=== PATIENT | female | born 1955 | race African-American/Black ===

== ENCOUNTER 2018-07-30 00:22 | Inpatient (IN) | payer MEDICAID ==
[2018-07-30] VITALS (50 sets, daily range): BP systolic 67–154; BP diastolic 20–114
[~2018-07-30] VITALS: Ht 160 cm; Wt 77.1 kg
[~2018-07-30 00:22] MED LIST: vicodin
[2018-07-30] MEDS ORDERED: FAMOTIDINE 20MG/2ML VIAL IV STA (00:42)
[2018-07-30] MEDS ORDERED: SODIUM CHLORIDE 0.9% 1,000 ML IV ONE ×2 (00:42)
[2018-07-30] MEDS ORDERED: ONDANSETRON HCL 4MG/2ML INJ IV STA (00:42)
[2018-07-30 01:17] LABS: BASOPHILS % 0.7 % (0.0-2.0); EOSINOPHILS % 2.1 % (0.0-5.0); HEMATOCRIT. 25.6 % (36.0-48.0); HEMOGLOBIN. 8.2 g/dL (12.0-16.0); MEAN CORPUSCULAR HEMOGLOBIN 27.9 pg (28.0-32.0); MEAN CORPUSCULAR VOLUME 86.6 fL (81.0-99.0); MEAN PLATELET VOLUME 8.1 fl (7.4-10.4); MONOCYTES % 3.4 % (2.0-8.0); NEUTROPHILS % 68.8 % (40.0-76.0); PLATELET 208 x1000/uL (130-400); RED BLOOD CELL COUNT 2.96 mill/uL (4.2-5.4)
[2018-07-30 01:23] LABS: INR 1.1; PARTIAL THROMBOPLASTIN TIME 25.3 sec (23.4-31.0); PROTHROMBIN TIME 10.8 sec (9.6-11.0)
[2018-07-30 01:24] LABS: CHLORIDE 110 mEq/L (98-107)
[2018-07-30] MEDS ORDERED: ONDANSETRON HCL 4MG/2ML INJ IV ONE (02:00)
[2018-07-30] MEDS ORDERED: MORPHINE SULFATE 4 MG/ML CPJ (NOT FOR IM USE) IV ONE (02:00)
[2018-07-30 03:38] LABS: BASOPHILS % 0.5 % (0.0-2.0); EOSINOPHILS % 1.1 % (0.0-5.0); HEMATOCRIT. 25.6 % (36.0-48.0); HEMOGLOBIN. 8.5 g/dL (12.0-16.0); LYMPHOCYTES % 18.1 % (20.0-50.0); MEAN CORPUSCULAR HEMOGLOBIN 28.3 pg (28.0-32.0); MEAN CORPUSCULAR VOLUME 85.7 fL (81.0-99.0); MEAN PLATELET VOLUME 7.9 fl (7.4-10.4); MONOCYTES % 3.7 % (2.0-8.0); NEUTROPHILS % 76.6 % (40.0-76.0); PLATELET 198 x1000/uL (130-400); RED BLOOD CELL COUNT 2.99 mill/uL (4.2-5.4)
[2018-07-30] MEDS ORDERED: ONDANSETRON HCL 4MG/2ML INJ IV PRN (05:00)
[2018-07-30] MEDS: MORPHINE SULFATE 2 MG/ML CPJ (NOT FOR IM USE) IV PRN ×3 (05:14→23:03)
[2018-07-30] MEDS: DEXT 5%/0.45% NACL KCL 10MEQ/L 1,000 ML IV SCH ×3 (06:26→19:54)
[2018-07-30] MEDS ORDERED: FAMOTIDINE 20MG/2ML VIAL IV SCH (09:00)
[2018-07-30 09:31] LABS: HEMATOCRIT 23.7 % (36.0-48.0); HEMOGLOBIN 7.6 g/dL (12.0-16.0)
[2018-07-30] MEDS: FAMOTIDINE 20MG/2ML VIAL IV SCH (09:34)
[2018-07-30 16:51] LABS: PHOSPHORUS 4.3 mg/dL (2.5-4.9)
[2018-07-30 19:10] LABS: HEMATOCRIT 29.9 % (36.0-48.0); HEMOGLOBIN 9.8 g/dL (12.0-16.0)
[2018-07-30] MEDS ORDERED: MAGNESIUM 2 G PREMIX 50 ML IV SCH (23:00)
[2018-07-31] VITALS (66 sets, daily range): BP systolic 76–148; BP diastolic 37–125
[2018-07-31] MEDS: DEXT 5%/0.45% NACL KCL 10MEQ/L 1,000 ML IV SCH (05:57)
[2018-07-31] MEDS: FAMOTIDINE 20MG/2ML VIAL IV SCH (08:18)
[2018-07-31 09:11] LABS: BASOPHILS % 0.7 % (0.0-2.0); EOSINOPHILS % 1.9 % (0.0-5.0); HEMOGLOBIN. 8.2 g/dL (12.0-16.0); LYMPHOCYTES % 16.6 % (20.0-50.0); MEAN CORPUSCULAR HEMOGLOBIN 28.4 pg (28.0-32.0); MEAN CORPUSCULAR VOLUME 86.3 fL (81.0-99.0); MEAN PLATELET VOLUME 7.8 fl (7.4-10.4); MONOCYTES % 4.1 % (2.0-8.0); NEUTROPHILS % 76.7 % (40.0-76.0); PLATELET 160 x1000/uL (130-400); RED CELL DISTRIBUTION WIDTH 14.7 % (11.6-14.6)
[2018-07-31 09:27] LABS: CHLORIDE 114 mEq/L (98-107)
[2018-07-31 09:38] LABS: T4 FREE 1.29 ng/dL (0.76-1.46)
[2018-07-31] MEDS ORDERED: DEXTROSE 50% WATER 50ML SYRINGE IV PRN (11:00)
[2018-07-31] MEDS: BLOOD SUGAR DIAGNOSTIC STRIP TEST SCH ×3 (11:33→20:11)
[2018-07-31] MEDS: INSULIN LISPRO 100 UNITS/ML SUBCUT SCH ×3 (11:47→20:13)
[2018-07-31] MEDS ORDERED: DIPHENHYDRAMINE 25MG CAPSULE PO PRN (12:30)
[2018-07-31] MEDS: ACETAMINOPHEN 650MG SUPP PR PRN ×3 (14:22→22:40)
[2018-08-01] VITALS: BP 120/69
[2018-08-01 04:00] VITALS: BP 125/73
[2018-08-01] MEDS: DEXT 5%/0.45% NACL KCL 10MEQ/L 1,000 ML IV SCH ×2 (04:53→08:55)
[2018-08-01] MEDS: ACETAMINOPHEN 650MG SUPP PR PRN (04:59)
[2018-08-01] MEDS: BLOOD SUGAR DIAGNOSTIC STRIP TEST SCH ×2 (06:25→12:25)
[2018-08-01] MEDS: INSULIN LISPRO 100 UNITS/ML SUBCUT SCH ×2 (06:46→12:25)
[2018-08-01 08:00] VITALS: BP 127/74
[2018-08-01] MEDS: FAMOTIDINE 20MG/2ML VIAL IV SCH (08:55)
[2018-08-01 12:00] VITALS: BP 117/94
[2018-08-01 13:20] LABS: BASOPHILS % 0.5 % (0.0-2.0); EOSINOPHILS % 1.6 % (0.0-5.0); HEMATOCRIT. 24.7 % (36.0-48.0); HEMOGLOBIN. 8.1 g/dL (12.0-16.0); LYMPHOCYTES % 19.6 % (20.0-50.0); MEAN CORPUSCULAR HEMOGLOBIN 28.6 pg (28.0-32.0); MEAN CORPUSCULAR VOLUME 87.2 fL (81.0-99.0); MEAN PLATELET VOLUME 8.2 fl (7.4-10.4); MONOCYTES % 4.5 % (2.0-8.0); NEUTROPHILS % 73.8 % (40.0-76.0); PLATELET 166 x1000/uL (130-400); RED BLOOD CELL COUNT 2.83 mill/uL (4.2-5.4); RED CELL DISTRIBUTION WIDTH 14.8 % (11.6-14.6)
[2018-08-01 15:23] VITALS: BP 117/94
[2018-08-01 15:39] LABS: HEMATOCRIT 26.2 % (36.0-48.0); HEMOGLOBIN 8.7 g/dL (12.0-16.0)
[2018-08-01 15:46] VITALS: BP 150/82
== END 2018-08-01 16:50 | disposition home or self-care (01) | DRG 253 ==
LOC: ER 00:22 → MICUSO 03:43 → EDBEDREQTM 03:49 → EDBEDREQ 03:49 → ENRESERV 04:00 → 8WST 07-31 16:22
PROVIDERS: ADMIT Hospitalist; ATTEND Hospitalist
PROC: 30233N1 Transfusion of Nonautologous Red Blood Cells into Peripheral Vein, Percutaneous Approach (ICD-10-PCS; principal; 2018-07-30)
DX: K62.5 Hemorrhage of anus and rectum (principal); R57.8 Other shock; N17.9 Acute kidney failure, unspecified; I95.9 Hypotension, unspecified; E11.9 Type 2 diabetes mellitus without complications; K57.91 Diverticulosis of intestine, part unspecified, without perforation or abscess with bleeding; D62 Acute posthemorrhagic anemia; I10 Essential (primary) hypertension; G89.29 Other chronic pain; R63.4 Abnormal weight loss; T39.395A Adverse effect of other nonsteroidal anti-inflammatory drugs [NSAID], initial encounter; K31.9 Disease of stomach and duodenum, unspecified; Z79.84 Long term (current) use of oral hypoglycemic drugs; Z88.6 Allergy status to analgesic agent; Z98.891 History of uterine scar from previous surgery; Z79.899 Other long term (current) drug therapy; Z68.30 Body mass index [BMI] 30.0-30.9, adult; Y92.89 Other specified places as the place of occurrence of the external cause
CPT/HCPCS: 36415; 71045; 74176; 78278; 80048; 82962; 83036; 83605; 83735; 84100; 84439; 84443; 85014; 85018; 86850; 86900; 86920; 93970; 96374; 96375; 99291; A9560; J1815; J2270; J2405; J3475; J3490; J7030; J7050; P9016

== ENCOUNTER 2018-08-08 12:35 | Inpatient (IN) | payer MEDICAID ==
[~2018-08-08] VITALS: Ht 160 cm; Wt 78.5 kg
[2018-08-08 14:58] LABS: BASOPHILS % 0.5 % (0.0-2.0); EOSINOPHILS % 1.9 % (0.0-5.0); LYMPHOCYTES % 20.5 % (20.0-50.0); MEAN CORPUSCULAR HEMOGLOBIN 28.7 pg (28.0-32.0); MEAN CORPUSCULAR VOLUME 88.7 fL (81.0-99.0); MEAN PLATELET VOLUME 7.6 fl (7.4-10.4); MONOCYTES % 4.2 % (2.0-8.0); NEUTROPHILS % 72.9 % (40.0-76.0); PLATELET 327 x1000/uL (130-400); RED BLOOD CELL COUNT 2.09 mill/uL (4.2-5.4); RED CELL DISTRIBUTION WIDTH 15.7 % (11.6-14.6)
[2018-08-08 15:01] LABS: CHLORIDE 116 mEq/L (98-107)
[2018-08-08 15:17] LABS: HEMATOCRIT. 18.6 % (36.0-48.0)
[2018-08-08] MEDS ORDERED: DEXTROSE 50% WATER 50ML SYRINGE IV PRN (16:30)
[2018-08-08] MEDS ORDERED: ACETAMINOPHEN 325MG TABLET PO PRN (16:30)
[2018-08-08 18:12] LABS: INR 1.1; PROTHROMBIN TIME 11.4 sec (9.6-11.0)
[2018-08-08] MEDS ORDERED: SODIUM CHLORIDE 0.9% 1,000 ML IV ONE ×2 (18:45)
[2018-08-08] MEDS: BLOOD SUGAR DIAGNOSTIC STRIP TEST SCH (21:00)
[2018-08-08] MEDS: INSULIN LISPRO 100 UNITS/ML SUBCUT SCH (21:00)
[2018-08-09] VITALS (67 sets, daily range): BP systolic 79–139; BP diastolic 31–94
[2018-08-09] MEDS: SODIUM CHLORIDE 0.9% 1,000 ML IV SCH ×3 (02:56→22:02)
[2018-08-09] MEDS: FAMOTIDINE 20MG/2ML VIAL IV SCH ×3 (04:17→21:53)
[2018-08-09 06:26] LABS: BASOPHILS % 0.5 % (0.0-2.0); CHLORIDE 120 mEq/L (98-107); EOSINOPHILS % 2.2 % (0.0-5.0); LYMPHOCYTES % 17.4 % (20.0-50.0); MEAN CORPUSCULAR HEMOGLOBIN 29.9 pg (28.0-32.0); MEAN CORPUSCULAR VOLUME 87.4 fL (81.0-99.0); MEAN PLATELET VOLUME 7.7 fl (7.4-10.4); MONOCYTES % 4.8 % (2.0-8.0); NEUTROPHILS % 75.1 % (40.0-76.0); PLATELET 265 x1000/uL (130-400); RED BLOOD CELL COUNT 2.36 mill/uL (4.2-5.4); RED CELL DISTRIBUTION WIDTH 14.7 % (11.6-14.6)
[2018-08-09] MEDS: MORPHINE SULFATE 2 MG/ML CPJ (NOT FOR IM USE) IV PRN ×2 (06:55→21:54)
[2018-08-09] MEDS: BLOOD SUGAR DIAGNOSTIC STRIP TEST SCH ×4 (07:50→21:55)
[2018-08-09 08:00] LABS: HEMATOCRIT. 20.6 % (36.0-48.0)
[2018-08-09] MEDS: INSULIN LISPRO 100 UNITS/ML SUBCUT SCH ×5 (08:20→21:55)
[2018-08-09] MEDS ORDERED: LIDOCAINE HCL 1% 20ML VIAL (Pyxis) INJ ONE ×2 (09:07→16:46)
[2018-08-09] MEDS ORDERED: SODIUM BICARBONATE 4% (2.4MEQ) 5ML VIAL IV ONE ×2 (09:07→16:46)
[2018-08-09] MEDS ORDERED: BARIUM SULFATE(VOLUMEN) 450 ML ORAL.SUSP ONE (09:10)
[2018-08-09] MEDS ORDERED: MIDAZOLAM HCL 5 MG/5 ML VIAL ONE (13:38)
[2018-08-09] MEDS ORDERED: FENTANYL CITRATE/PF 50MCG/ML 2ML VIAL ONE ×2 (13:38→18:15)
[2018-08-09] MEDS ORDERED: DIPHENHYDRAMINE 50MG/ML VIAL ONE (13:38)
[2018-08-09] MEDS ORDERED: NOREPINEPHRINE BITARTRATE 1MG/ML 4ML IV ONE (14:22)
[2018-08-09] MEDS ORDERED: MIDAZOLAM HCL 5 MG/5 ML VIAL IV NR (14:45)
[2018-08-09] MEDS: NOREPINEPHRINE 4 MG in DEXT 5% WATER 246 ML IV PRN ×2 (15:21→19:25)
[2018-08-09] MEDS ORDERED: FENTANYL CITRATE/PF 50MCG/ML 2ML VIAL IV NR (15:45)
[2018-08-09] MEDS ORDERED: IOHEXOL-300 100 ML BOTTLE ONE (16:46)
[2018-08-09 17:38] LABS: HEMOGLOBIN 6.5 g/dL (12.0-16.0)
[2018-08-09 17:40] LABS: INR 1.4; PARTIAL THROMBOPLASTIN TIME 36.4 sec (23.4-31.0); PROTHROMBIN TIME 14.5 sec (9.6-11.0)
[2018-08-09 20:29] LABS: CLARITY URINE CLEAR (CLEAR); COLOR URINE YELLOW (YELLOW); KETONES URINE NEGATIVE (NEGATIVE); LEUKOCYTE ESTERASE URINE NEGATIVE (NEGATIVE); NITRITE URINE NEGATIVE (NEGATIVE); OCCULT BLOOD URINE NEGATIVE (NEGATIVE); PROTEIN URINE NEGATIVE (NEGATIVE); SPECIFIC GRAVITY URINE 1.048 (1.005-1.030); UROBILINOGEN URINE 0.2 E.U./dL (0.2-1.0)
[2018-08-09] MEDS ORDERED: NOREPINEPHRINE 16 MG in DEXT 5% WATER 234 ML IV PRN (22:15)
[2018-08-09] MEDS ORDERED: NOREPINEPHRINE 4 MG in DEXT 5% WATER 246 ML IV PRN (22:45)
[2018-08-10] VITALS (59 sets, daily range): BP systolic 66–148; BP diastolic 21–88
[2018-08-10] MEDS: MORPHINE SULFATE 2 MG/ML CPJ (NOT FOR IM USE) IV PRN ×3 (04:57→14:23)
[2018-08-10 05:44] LABS: BASOPHILS % 0.6 % (0.0-2.0); EOSINOPHILS % 1.5 % (0.0-5.0); HEMATOCRIT. 26.2 % (36.0-48.0); HEMOGLOBIN. 9.2 g/dL (12.0-16.0); LYMPHOCYTES % 14.9 % (20.0-50.0); MEAN CORPUSCULAR HEMOGLOBIN 31.2 pg (28.0-32.0); MEAN CORPUSCULAR VOLUME 89.3 fL (81.0-99.0); MEAN PLATELET VOLUME 7.8 fl (7.4-10.4); MONOCYTES % 6.3 % (2.0-8.0); NEUTROPHILS % 76.7 % (40.0-76.0); PLATELET 132 x1000/uL (130-400); RED BLOOD CELL COUNT 2.94 mill/uL (4.2-5.4); RED CELL DISTRIBUTION WIDTH 14.9 % (11.6-14.6)
[2018-08-10 06:00] LABS: INR 1.2; PROTHROMBIN TIME 12.4 sec (9.6-11.0)
[2018-08-10 06:14] LABS: CHLORIDE 125 mEq/L (98-107)
[2018-08-10] MEDS: INSULIN LISPRO 100 UNITS/ML SUBCUT SCH ×4 (08:20→21:00)
[2018-08-10] MEDS: BLOOD SUGAR DIAGNOSTIC STRIP TEST SCH ×4 (08:30→21:00)
[2018-08-10] MEDS: SODIUM CHLORIDE 0.9% 1,000 ML IV SCH ×2 (09:03→22:51)
[2018-08-10] MEDS: FAMOTIDINE 20MG/2ML VIAL IV SCH ×2 (09:03→20:23)
[2018-08-10 12:35] LABS: HEMATOCRIT 24.5 % (36.0-48.0); HEMOGLOBIN 8.4 g/dL (12.0-16.0)
[2018-08-10 20:36] LABS: HEMATOCRIT 27.3 % (36.0-48.0); HEMOGLOBIN 9.6 g/dL (12.0-16.0)
[2018-08-11] VITALS (12 sets, daily range): BP systolic 127–171; BP diastolic 62–85
[2018-08-11] MEDS: MORPHINE SULFATE 2 MG/ML CPJ (NOT FOR IM USE) IV PRN ×3 (06:25→22:10)
[2018-08-11 06:40] LABS: BASOPHILS % 0.5 % (0.0-2.0); EOSINOPHILS % 2.6 % (0.0-5.0); HEMATOCRIT. 24.5 % (36.0-48.0); HEMOGLOBIN. 8.4 g/dL (12.0-16.0); LYMPHOCYTES % 23.9 % (20.0-50.0); MEAN CORPUSCULAR HEMOGLOBIN 30.7 pg (28.0-32.0); MEAN CORPUSCULAR VOLUME 89.4 fL (81.0-99.0); MEAN PLATELET VOLUME 7.6 fl (7.4-10.4); PLATELET 130 x1000/uL (130-400); RED BLOOD CELL COUNT 2.74 mill/uL (4.2-5.4); RED CELL DISTRIBUTION WIDTH 15.4 % (11.6-14.6)
[2018-08-11] MEDS: BLOOD SUGAR DIAGNOSTIC STRIP TEST SCH ×4 (07:30→21:00)
[2018-08-11 07:39] LABS: CHLORIDE 124 mEq/L (98-107)
[2018-08-11] MEDS: INSULIN LISPRO 100 UNITS/ML SUBCUT SCH ×4 (08:00→22:31)
[2018-08-11] MEDS: FAMOTIDINE 20MG/2ML VIAL IV SCH ×2 (09:02→21:49)
[2018-08-11 11:41] LABS: HEMATOCRIT 24.4 % (36.0-48.0); HEMOGLOBIN 8.3 g/dL (12.0-16.0)
[2018-08-11 12:05] LABS: TOTAL IRON BINDING CAPACITY 191 ug/dL (250-450)
[2018-08-11] MEDS: SODIUM CHLORIDE 0.9% 1,000 ML IV SCH (16:19)
[2018-08-11 23:18] LABS: HEMATOCRIT 25.3 % (36.0-48.0); HEMOGLOBIN 8.7 g/dL (12.0-16.0)
[2018-08-12] VITALS (7 sets, daily range): BP systolic 116–168; BP diastolic 62–90
[2018-08-12] MEDS: MORPHINE SULFATE 2 MG/ML CPJ (NOT FOR IM USE) IV PRN ×2 (06:13→15:59)
[2018-08-12] MEDS: SODIUM CHLORIDE 0.9% 1,000 ML IV SCH (06:35)
[2018-08-12 06:57] LABS: CHLORIDE 125 mEq/L (98-107)
[2018-08-12 07:21] LABS: BASOPHILS % 0.5 % (0.0-2.0); EOSINOPHILS % 3.5 % (0.0-5.0); HEMATOCRIT. 25.3 % (36.0-48.0); HEMOGLOBIN. 8.7 g/dL (12.0-16.0); LYMPHOCYTES % 21.4 % (20.0-50.0); MEAN CORPUSCULAR HEMOGLOBIN 31.2 pg (28.0-32.0); MEAN CORPUSCULAR VOLUME 90.9 fL (81.0-99.0); MEAN PLATELET VOLUME 7.5 fl (7.4-10.4); MONOCYTES % 6.3 % (2.0-8.0); NEUTROPHILS % 68.3 % (40.0-76.0); PLATELET 147 x1000/uL (130-400); RED BLOOD CELL COUNT 2.78 mill/uL (4.2-5.4); RED CELL DISTRIBUTION WIDTH 15.6 % (11.6-14.6)
[2018-08-12] MEDS: INSULIN LISPRO 100 UNITS/ML SUBCUT SCH ×3 (08:00→17:21)
[2018-08-12] MEDS: BLOOD SUGAR DIAGNOSTIC STRIP TEST SCH ×3 (08:14→17:21)
[2018-08-12] MEDS: FAMOTIDINE 20MG/2ML VIAL IV SCH (09:38)
[2018-08-12] MEDS: DOCUSATE SODIUM 250MG CAPSULE PO SCH ×2 (12:06→17:00)
[2018-08-12 13:29] LABS: HEMATOCRIT 25.7 % (36.0-48.0); HEMOGLOBIN 8.9 g/dL (12.0-16.0)
== END 2018-08-12 19:36 | disposition home or self-care (01) | DRG 241 ==
LOC: ER 13:16 → 3WST 16:18 → ENRESERV 20:24 → CVICU 08-09 03:42 → 5EST 08-10 12:00
PROVIDERS: ADMIT Internal Medicine; ATTEND Internal Medicine
PROC: 30233N1 Transfusion of Nonautologous Red Blood Cells into Peripheral Vein, Percutaneous Approach (ICD-10-PCS; principal; 2018-08-08)
PROC: 0DB68ZX Excision of Stomach, Via Natural or Artificial Opening Endoscopic, Diagnostic (ICD-10-PCS; 2018-08-09)
PROC: 05H533Z Insertion of Infusion Device into Right Subclavian Vein, Percutaneous Approach (ICD-10-PCS; 2018-08-09)
PROC: B546ZZA Ultrasonography of Right Subclavian Vein, Guidance (ICD-10-PCS; 2018-08-09)
PROC: B4101ZZ Fluoroscopy of Abdominal Aorta using Low Osmolar Contrast (ICD-10-PCS; 2018-08-09)
PROC: B4151ZZ Fluoroscopy of Inferior Mesenteric Artery using Low Osmolar Contrast (ICD-10-PCS; 2018-08-09)
PROC: B4141ZZ Fluoroscopy of Superior Mesenteric Artery using Low Osmolar Contrast (ICD-10-PCS; 2018-08-09)
PROC: 30233K1 Transfusion of Nonautologous Frozen Plasma into Peripheral Vein, Percutaneous Approach (ICD-10-PCS; 2018-08-10)
DX: K29.71 Gastritis, unspecified, with bleeding (principal); E43 Unspecified severe protein-calorie malnutrition; E87.8 Other disorders of electrolyte and fluid balance, not elsewhere classified; D62 Acute posthemorrhagic anemia; K57.91 Diverticulosis of intestine, part unspecified, without perforation or abscess with bleeding; E11.9 Type 2 diabetes mellitus without complications; E66.9 Obesity, unspecified; I10 Essential (primary) hypertension; K59.09 Other constipation; Z88.5 Allergy status to narcotic agent; Z71.3 Dietary counseling and surveillance; Z68.30 Body mass index [BMI] 30.0-30.9, adult; Z79.84 Long term (current) use of oral hypoglycemic drugs
CPT/HCPCS: 36415; 36569; 71045; 75625; 75726; 75774; 76937; 78278; 80048; 82728; 82962; 83540; 83550; 84484; 85014; 85018; 86850; 86900; 86920; 86927; 88305; 88312; 88313; 93005; 93970; 96360; 96361; 97162; 99285; A9560; C1725; C1760; C1766; C1769; J1200; J1644; J1815; J2250; J2270; J3010; J3490; J7030; J7040; J7050; J7060; P9016; P9017; P9021; Q9967; A4315

== ENCOUNTER 2019-03-10 11:26 | Inpatient (IN) | payer MEDICAID ==
[~2019-03-10] VITALS: Ht 167.6 cm; Wt 77.1 kg
[2019-03-10 12:16] LABS: BASOPHILS % 0.8 % (0.0-2.0); EOSINOPHILS % 3.5 % (0.0-5.0); HEMATOCRIT. 27.2 % (36.0-48.0); HEMOGLOBIN. 8.9 g/dL (12.0-16.0); MEAN CORPUSCULAR HEMOGLOBIN 28.8 pg (28.0-32.0); MEAN CORPUSCULAR VOLUME 87.5 fL (81.0-99.0); MEAN PLATELET VOLUME 6.9 fl (7.4-10.4); MONOCYTES % 5.1 % (2.0-8.0); NEUTROPHILS % 72.6 % (40.0-76.0); PLATELET 242 x1000/uL (130-400); RED CELL DISTRIBUTION WIDTH 15.7 % (11.6-14.6)
[2019-03-10 12:20] LABS: CHLORIDE 112 mEq/L (98-107)
[2019-03-10] MEDS ORDERED: KETOROLAC 30MG/ML VIAL IV ONE (12:30)
[2019-03-10] MEDS ORDERED: ENALAPRIL 2.5MG/2ML VIAL 2ML IV ONE (13:45)
[2019-03-10] MEDS ORDERED: FUROSEMIDE 40MG/4ML VIAL IVP ONE (13:45)
[2019-03-10] MEDS ORDERED: ENALAPRIL 1.25MG/ML VIAL 1ML IV ONE (14:00)
[2019-03-10] MEDS ORDERED: KETOROLAC 30MG/ML VIAL IV PRN (17:15)
[2019-03-10] MEDS ORDERED: MAGNESIUM/ALUMINUM HYDROXIDE/SIMETHICONE 30ML UDC PO PRN (18:30)
[2019-03-10] MEDS ORDERED: DIPHENHYDRAMINE 50MG/ML VIAL IV PRN (18:30)
[2019-03-10] MEDS ORDERED: ONDANSETRON HCL 4MG/2ML INJ IV PRN (18:30)
[2019-03-10] MEDS ORDERED: ACETAMINOPHEN 325MG TABLET PO PRN (18:30)
[2019-03-10] MEDS ORDERED: CLONIDINE 0.1MG TABLET PO PRN (18:30)
[2019-03-10] MEDS ORDERED: DOCUSATE SODIUM 100MG CAPSULE PO PRN (18:30)
[2019-03-10] MEDS ORDERED: DEXTROSE 50% WATER 50ML SYRINGE IV PRN ×2 (18:30)
[2019-03-10] MEDS ORDERED: BLOOD SUGAR DIAGNOSTIC STRIP TEST SCH (22:53)
[2019-03-10] MEDS ORDERED: INSULIN LISPRO 100 UNITS/ML SUBCUT NR (22:54)
[2019-03-11 07:51] LABS: BASOPHILS % 0.9 % (0.0-2.0); HEMATOCRIT. 28.6 % (36.0-48.0); HEMOGLOBIN. 9.2 g/dL (12.0-16.0); LYMPHOCYTES % 19.6 % (20.0-50.0); MEAN CORPUSCULAR HEMOGLOBIN 28.5 pg (28.0-32.0); MEAN CORPUSCULAR VOLUME 88.3 fL (81.0-99.0); MEAN PLATELET VOLUME 7.4 fl (7.4-10.4); MONOCYTES % 4.1 % (2.0-8.0); NEUTROPHILS % 72.4 % (40.0-76.0); PLATELET 237 x1000/uL (130-400); RED BLOOD CELL COUNT 3.24 mill/uL (4.2-5.4)
[2019-03-11 08:16] LABS: PHOSPHORUS 3.9 mg/dL (2.5-4.9)
[2019-03-11] MEDS: BLOOD SUGAR DIAGNOSTIC STRIP TEST SCH ×4 (09:00→21:00)
[2019-03-11 09:47] LABS: BG BASE EXCESS -1.4 mmol/L (-2.0-2.0); BG DEOXYHEMOGLOBIN 3.3 % (0.0-5.0); BG FRACTION INSPIRED OXYGEN 34; BG HCO3 ACT 23.7 mmol/L (22.0-26.0); BG METHEMOGLOBIN 0.2 % (0.0-1.5); BG OXYGEN SATURATION 96.7 % (92.0-98.5); BG OXYHEMOGLOBIN 96.5 % (94.0-97.0); BG PCO2 41.4 mmHg (35.0-45.0); BG PH 7.376 (7.350-7.450); BG PO2 91.6 mmHg (75.0-100.0); BG SAMPLE SITE LEFT BRACHIAL; BG TOTAL HEMOGLOBIN 9.7 g/dL (12.0-18.0); BG VENT MODE NASAL CANNULA
[2019-03-11] MEDS ORDERED: IPRATROPIUM/ALBUTEROL 0.5-3(2.5)MG/3ML NEB HHN PRN (10:30)
[2019-03-11] MEDS: FUROSEMIDE 40MG/4ML VIAL IVP SCH ×2 (11:35→17:00)
[2019-03-11 12:00] VITALS: BP 134/82
[2019-03-11 12:20] LABS: CLARITY URINE CLEAR (CLEAR); COLOR URINE YELLOW (YELLOW); KETONES URINE NEGATIVE (NEGATIVE); LEUKOCYTE ESTERASE URINE NEGATIVE (NEGATIVE); NITRITE URINE NEGATIVE (NEGATIVE); OCCULT BLOOD URINE TRACE (NEGATIVE); PROTEIN URINE 2+ (NEGATIVE); SPECIFIC GRAVITY URINE 1.012 (1.005-1.030); UROBILINOGEN URINE 0.2 E.U./dL (0.2-1.0)
[2019-03-11] MEDS: INSULIN LISPRO 100 UNITS/ML SUBCUT SCH ×3 (12:20→21:00)
[2019-03-11 13:58] VITALS: BP 137/77
[2019-03-11] MEDS: LOSARTAN POTASSIUM 25 MG TABLET PO SCH (14:25)
[2019-03-11] MEDS: ASPIRIN 81MG EC TABLET PO SCH (14:25)
[2019-03-11 16:00] VITALS: BP 148/60
[2019-03-11 16:58] LABS: *AMPHETAMINES SCREEN URINE NEGATIVE (NEGATIVE); *BARBITURATES SCREEN URINE NEGATIVE (NEGATIVE); *BENZODIAZEPINES SCREEN URINE NEGATIVE (NEGATIVE)
[2019-03-11 16:59] LABS: *COCAINE SCREEN URINE NEGATIVE (NEGATIVE); CANNABINOID URINE SCREEN NEGATIVE (NEGATIVE); METHADONE URINE SCREEN NEGATIVE (NEGATIVE); OPIATES URINE SCREEN NEGATIVE (NEGATIVE); PHENCYCLIDINE URINE SCREEN NEGATIVE (NEGATIVE)
[2019-03-11 17:48] VITALS: BP 143/81
[2019-03-11 20:00] VITALS: BP 141/79
[2019-03-11] MEDS: IPRATROPIUM/ALBUTEROL 0.5-3(2.5)MG/3ML NEB HHN SCH (21:32)
[2019-03-11] MEDS: ATORVASTATIN CALCIUM 10MG TABLET PO SCH (22:21)
[2019-03-11] MEDS: CARVEDILOL 3.125 MG TABLET PO SCH (22:21)
[2019-03-12] VITALS (10 sets, daily range): BP systolic 121–144; BP diastolic 64–88
[2019-03-12] MEDS ORDERED: HYDROCODONE/ACETAMINOPHEN 5/325MG TABLET PO PRN (02:30)
[2019-03-12] MEDS: IPRATROPIUM/ALBUTEROL 0.5-3(2.5)MG/3ML NEB HHN SCH ×4 (03:00→22:40)
[2019-03-12] MEDS: INSULIN LISPRO 100 UNITS/ML SUBCUT SCH ×4 (07:20→21:00)
[2019-03-12] MEDS: BLOOD SUGAR DIAGNOSTIC STRIP TEST SCH ×4 (07:32→21:53)
[2019-03-12] MEDS ORDERED: FUROSEMIDE 40MG TABLET PO SCH (09:00)
[2019-03-12] MEDS ORDERED: SODIUM BICARBONATE 4% (2.4MEQ) 5ML VIAL IV ONE (09:03)
[2019-03-12] MEDS ORDERED: LIDOCAINE HCL 1% 20ML VIAL (Pyxis) INJ ONE (09:04)
[2019-03-12] MEDS: LOSARTAN POTASSIUM 25 MG TABLET PO SCH (10:39)
[2019-03-12] MEDS: ASPIRIN 81MG EC TABLET PO SCH (10:39)
[2019-03-12] MEDS: FUROSEMIDE 40MG/4ML VIAL IVP SCH ×2 (10:39→18:21)
[2019-03-12] MEDS: CARVEDILOL 3.125 MG TABLET PO SCH ×2 (10:39→21:55)
[2019-03-12] MEDS: HYDROCODONE/ACETAMINOPHEN 10/325MG TABLET PO PRN (10:41)
[2019-03-12 16:45] LABS: PHOSPHORUS 3.6 mg/dL (2.5-4.9)
[2019-03-12 16:48] LABS: BASOPHILS % 0.7 % (0.0-2.0); EOSINOPHILS % 3.3 % (0.0-5.0); HEMATOCRIT. 27.6 % (36.0-48.0); HEMOGLOBIN. 8.6 g/dL (12.0-16.0); LYMPHOCYTES % 20.3 % (20.0-50.0); MEAN CORPUSCULAR HEMOGLOBIN 27.3 pg (28.0-32.0); MEAN CORPUSCULAR VOLUME 87.5 fL (81.0-99.0); MEAN PLATELET VOLUME 7.6 fl (7.4-10.4); MONOCYTES % 4.9 % (2.0-8.0); NEUTROPHILS % 70.8 % (40.0-76.0); PLATELET 245 x1000/uL (130-400); RED BLOOD CELL COUNT 3.15 mill/uL (4.2-5.4); RED CELL DISTRIBUTION WIDTH 16.2 % (11.6-14.6)
[2019-03-12] MEDS: ATORVASTATIN CALCIUM 10MG TABLET PO SCH (21:54)
[2019-03-13] VITALS (7 sets, daily range): BP systolic 104–145; BP diastolic 63–82
[2019-03-13] MEDS: HYDROCODONE/ACETAMINOPHEN 10/325MG TABLET PO PRN ×2 (00:34→05:33)
[2019-03-13] MEDS: IPRATROPIUM/ALBUTEROL 0.5-3(2.5)MG/3ML NEB HHN SCH ×3 (01:13→12:34)
[2019-03-13] MEDS: BLOOD SUGAR DIAGNOSTIC STRIP TEST SCH ×3 (05:33→17:40)
[2019-03-13] MEDS ORDERED: LISI-604 PO (06:29)
[2019-03-13] MEDS ORDERED: ISOS20TA8 PO (06:29)
[2019-03-13] MEDS ORDERED: ASPI-1158 PO (06:35)
[2019-03-13] MEDS ORDERED: FURO40TA5 PO (06:35)
[2019-03-13] MEDS ORDERED: HYDR-4001 PO (06:35)
[2019-03-13] MEDS ORDERED: DOXE10CA2 PO (06:35)
[2019-03-13] MEDS ORDERED: CARV25TA47 PO (06:35)
[2019-03-13] MEDS ORDERED: ATOR-2 PO (06:35)
[2019-03-13] MEDS: INSULIN LISPRO 100 UNITS/ML SUBCUT SCH ×3 (08:10→18:10)
[2019-03-13] MEDS: FUROSEMIDE 40MG/4ML VIAL IVP SCH ×2 (09:27→18:05)
[2019-03-13] MEDS: LOSARTAN POTASSIUM 25 MG TABLET PO SCH (09:28)
[2019-03-13] MEDS: CARVEDILOL 3.125 MG TABLET PO SCH (09:28)
[2019-03-13] MEDS: ASPIRIN 81MG EC TABLET PO SCH (09:28)
[2019-03-13] MEDS ORDERED: HYDR-4001 MT (16:48)
== END 2019-03-13 20:15 | disposition home or self-care (01) | DRG 133 ==
LOC: ER 13:02 → 3WST 13:35 → ENRESERV 03-11 10:39 → 7WST 03-13 02:26
PROVIDERS: ADMIT Internal Medicine; ATTEND Internal Medicine
PROC: 02HV33Z Insertion of Infusion Device into Superior Vena Cava, Percutaneous Approach (ICD-10-PCS; principal; 2019-03-12)
PROC: B5181ZA Fluoroscopy of Superior Vena Cava using Low Osmolar Contrast, Guidance (ICD-10-PCS; 2019-03-12)
PROC: B548ZZA Ultrasonography of Superior Vena Cava, Guidance (ICD-10-PCS; 2019-03-12)
DX: J96.00 Acute respiratory failure, unspecified whether with hypoxia or hypercapnia (principal); N17.0 Acute kidney failure with tubular necrosis; I50.43 Acute on chronic combined systolic (congestive) and diastolic (congestive) heart failure; E44.0 Moderate protein-calorie malnutrition; E87.8 Other disorders of electrolyte and fluid balance, not elsewhere classified; D64.9 Anemia, unspecified; E11.9 Type 2 diabetes mellitus without complications; E07.9 Disorder of thyroid, unspecified; I11.0 Hypertensive heart disease with heart failure; E78.5 Hyperlipidemia, unspecified; I25.10 Atherosclerotic heart disease of native coronary artery without angina pectoris; I25.5 Ischemic cardiomyopathy; Z82.49 Family history of ischemic heart disease and other diseases of the circulatory system; Z83.3 Family history of diabetes mellitus; Z86.718 Personal history of other venous thrombosis and embolism; Z95.5 Presence of coronary angioplasty implant and graft; Z95.828 Presence of other vascular implants and grafts; Z90.49 Acquired absence of other specified parts of digestive tract; Z98.891 History of uterine scar from previous surgery; Z68.27 Body mass index [BMI] 27.0-27.9, adult
CPT/HCPCS: 36415; 36573; 36600; 71045; 76770; 76937; 78582; 80048; 80053; 80061; 80305; 81003; 82375; 82550; 82805; 82962; 83036; 83735; 83880; 84100; 84443; 84484; 85025; 93005; 93306; 93970; 94640; 96374; 97116; 97162; 99285; A9558; C1725; C1769; J1815; J1885; J1940; J3490